=== PATIENT | male | born 1975 | race African-American/Black ===

== ENCOUNTER 2018-04-01 12:55 | Emergency (ER) | payer OTHER ==
[~2018-04-01] VITALS: Ht 180.3 cm; Wt 98.3 kg
[2018-04-01] MEDS ORDERED: FLEXERIL10 MG PO (15:47)
[2018-04-01] MEDS ORDERED: MOTRIN800 MG PO (15:47)
[2018-04-01 15:57] VITALS: BP 128/91
== END 2018-04-01 15:58 | disposition home or self-care (01) ==
LOC: EME 12:55
DX: S16.1XXA Strain of muscle, fascia and tendon at neck level, initial encounter (principal); R51 Headache; V44.5XXA Car driver injured in collision with heavy transport vehicle or bus in traffic accident, initial encounter; Y92.481 Parking lot as the place of occurrence of the external cause; F17.200 Nicotine dependence, unspecified, uncomplicated
CPT/HCPCS: 70450; 72125; 99281; 99284